=== PATIENT | female | born 1985 ===

== ENCOUNTER 2019-10-08 05:16 | Inpatient (IN) | payer BC ==
[2019-10-07 11:40] LABS: BLOOD UREA NITROGEN,BUN 6 mg/dL (7.0-18.0); CARBON DIOXIDE,CO2 23.1 mmol/L (21.0-32.0); CHLORIDE,CL 105 mmol/L (98-107); GLUCOSE RANDOM 117 mg/dL (74-106); POTASSIUM,K 4.1 mmol/L (3.5-5.1); SODIUM,NA 137 mmol/L (136-145)
[2019-10-08] MEDS ORDERED: Sodium Chloride 0.9% 10 ML Syringe FLUSH PRN (05:20)
[2019-10-08] MEDS ORDERED: Sodium Chloride 0.9% 2.5 ML Syringe FLUSH PRN (05:20)
[2019-10-08] MEDS ORDERED: Citric Acid/Sodium Citrate Solution 30 ML Cup PO ONE (05:20)
[2019-10-08] MEDS ORDERED: ceFAZolin 1 GM in Premix Bag 1 BAG IV ONE (05:20)
[2019-10-08] MEDS ORDERED: Sodium Chloride 0.9% 10 ML SDV IV PRN (05:20)
[2019-10-08] MEDS ORDERED: Oxytocin/0.9 % Sodium Chloride 30 UNIT/500 ML BAG IV SCH (05:30)
[2019-10-08] MEDS: Lactated Ringers 1,000 ML IV SCH ×3 (06:04→08:03)
--- NOTE | 2019-10-08 06:46 | PCM.PREANE ---
Preanesthetic Assessment - Anesthesia/Transfusion/Family Hx Anesthesia History: Prior Anesthesia Without Reaction Family History of Anesthesia Reaction: No Transfusion History: No Prior Transfusion(s) Intubation History: Unknown - Review of Systems General: No Symptoms Pulmonary: No Symptoms Cardiovascular: No Symptoms Gastrointestinal: No Symptoms Neurological: No Symptoms Other: Reports: None - Physical Assessment Height: 5 ft 2 in Weight: 68.946 kg ASA Class: 2 Mental Status: Alert & Oriented x3 Airway Class: Mallampati = 2 Dentition: Reports: Normal Dentition Thyro-Mental Finger Breadths: 3 Mouth Opening Finger Breadths: 2 ROM/Head Extension: Full Lungs: Clear to Auscultation, Normal Respiratory Effort Cardiovascular: Regular Rate, Regular Rhythm - Lab Values: Laboratory Last Values WBC 4.55 K/uL (4.0-11.0) 10/07/19 10:29 RBC 3.79 M/uL (4.30-5.90) L 10/07/19 10:29 Hgb 10.3 g/dL (12.0-16.0) L 10/07/19 10:29 Hct 31.9 % (36.0-46.0) L 10/07/19 10:29 MCV 84.2 fL (80.0-98.0) 10/07/19 10:29 MCH 27.2 pg (27.0-32.0) 10/07/19 10:29 MCHC 32.3 g/dL (31.0-37.0) 10/07/19 10:29 RDW Std Deviation 47.6 fl (28.0-62.0) 10/07/19 10:29 RDW Coeff of Karrie 16 % (11.0-15.0) H 10/07/19 10:29 Plt Count 201 K/uL (150-400) 10/07/19 10:29 MPV 9.80 fL (7.40-12.00) 10/07/19 10:29 Neut % (Auto) 56.4 % (48.0-80.0) 10/07/19 10:29 Lymph % (Auto) 33.8 % (16.0-40.0) 10/07/19 10:29 Luna % (Auto) 9.2 % (0.0-15.0) 10/07/19 10:29 Eos % (Auto) 0.4 % (0.0-7.0) 10/07/19 10:29 Baso % (Auto) 0.2 % (0.0-1.5) 10/07/19 10:29 Neut # (Auto) 2.6 K/uL (1.4-5.7) 10/07/19 10:29 Lymph # (Auto) 1.5 K/uL (0.6-2.4) 10/07/19 10:29 Luna # (Auto) 0.4 K/uL (0.0-0.8) 10/07/19 10:29 Eos # (Auto) 0.0 K/uL (0.0-0.7) 10/07/19 10:29 Baso # (Auto) 0.0 K/uL (0.0-0.1) 10/07/19 10:29 Nucleated RBC % 0.0 /100WBC 10/07/19 10:29 Nucleated RBCs # 0 K/uL 10/07/19 10:29 Sodium 137 mmol/L (136-145) 10/07/19 10:29 Potassium 4.1 mmol/L (3.5-5.1) 10/07/19 10:29 Chloride 105 mmol/L (98-107) 10/07/19 10:29 Carbon Dioxide 23.1 mmol/L (21.0-32.0) 10/07/19 10:29 BUN 6 mg/dL (7.0-18.0) L 10/07/19 10:29 Creatinine 0.6 mg/dL (0.6-1.0) 10/07/19 10:29 Est Cr Clr Drug Dosing 105.48 mL/min 10/07/19 10:29 Estimated GFR (MDRD) > 60.0 ml/min 10/07/19 10:29 Glucose 117 mg/dL (74-106) H 10/07/19 10:29 Calcium 8.5 mg/dL (8.5-10.1) 10/07/19 10:29 Total Bilirubin 0.2 mg/dL (0.2-1.0) 10/07/19 10:29 AST 22 IU/L (15-37) 10/07/19 10:29 ALT 15 IU/L (14-63) 10/07/19 10:29 Alkaline Phosphatase 193 U/L (46-116) H 10/07/19 10:29 Total Protein 6.6 g/dL (6.4-8.2) 10/07/19 10:29 Albumin 2.5 g/dL (3.4-5.0) L 10/07/19 10:29 Globulin 4.1 g/dL (2.6-4.0) H 10/07/19 10:29 Albumin/Globulin Ratio 0.6 (0.9-1.6) L 10/07/19 10:29 Blood Type O POSITIVE 10/07/19 10:29 Antibody Screen POSITIVE 10/07/19 10:29 Antibody Identification Anti-Morenita 10/07/19 10:29 Crossmatch See Detail 10/07/19 10:29 - Allergies Allergies/Adverse Reactions: Allergies Allergy/AdvReac Type Severity Reaction Status Date / Time No Known Allergies Allergy Verified 10/02/19 10:16 - Blood Blood Available: No - Anesthesia Plan Pre-Op Medication Ordered: None - Acknowledgements Anesthesia Type Planned: Spinal (general anesthesia back-up plan) Pt an Appropriate Candidate for the Planned Anesthesia: Yes Alternatives and Risks of Anesthesia Discussed w Pt/Guardian: Yes Pt/Guardian Understands and Agrees with Anesthesia Plan: Yes PreAnesthesia Questionnaire HEENT History: Reports: Impaired Vision Cardiovascular History: Reports: None Respiratory History: Reports: None Gastrointestinal History: Reports: Other (See Below) Other Gastrointestinal History: occasional heartburn Genitourinary History: Reports: None FREELANCE COURT REPORTER History: Reports: , Other (See Below) Other OB/BYN History: x2. Musculoskeletal History: Reports: None Neurological History: Reports: None Psychiatric History: Reports: None Endocrine/Metabolic History: Reports: IDDM (10 years, glucose 88 this morning) Hematologic History: Reports: None Immunologic History: Reports: None Oncologic (Cancer) History: Reports: None Dermatologic History: Reports: None - Past Surgical History Head Surgeries/Procedures: Reports: None HEENT Surgical History: Reports: None Cardiovascular Surgical History: Reports: None Respiratory Surgical History: Reports: None GI Surgical History: Reports: Cholecystectomy Female Surgical History: Reports: Section (x2) Endocrine Surgical History: Reports: None Neurological Surgical History: Reports: None Musculoskeletal Surgical History: Reports: None Oncologic Surgical History: Reports: None Dermatological Surgical History: Reports: None - SUBSTANCE USE Smoking Status *Q: Never Smoker Recreational Drug Use History: No - HOME MEDS Home Medications: Home Meds Acetaminophen [Tylenol Extra Strength] 1 tab PO ASDIRECTED PRN 09/20/19 [History ] Iron 1 tab PO DAILY 09/20/19 [History] Pnv #30/Iron Carb&Aspg/Fa/Om3 [OB Complete with DHA Softgel] 1 tab PO DAILY [History] Aspirin [Halfprin] 81 mg PO DAILY 10/02/19 [History] Insulin Aspart [NovoLOG] 1 injection SUBCUT ASDIRECTED 10/02/19 [History] Insulin Glargine,Hum.Rec.Anlog [Toujeo Solostar] 24 units SUBCUT ACBREAKFAST 08/11 [History] - CURRENT (IN HOUSE) MEDS Current Meds: Current Medications Lactated Ringer's (Ringers, Lactated) 1,000 mls @ 500 mls/hr IV BOLUS FAVIOLA Last Admin: 10/08/19 06:04 Dose: 500 mls/hr Oxytocin/Sodium Chloride (Oxytocin 30 Unit/500 Ml-Ns) 30 unit in 500 mls @ 250 mls/hr IV TITRATE FAVIOLA Sodium Chloride (Saline Flush) 10 ml FLUSH ASDIRECTED PRN PRN Reason: Keep Vein Open Sodium Chloride (Saline Flush) 2.5 ml FLUSH ASDIRECTED PRN PRN Reason: Keep Vein Open Sodium Chloride (Normal Saline) 10 ml IV ASDIRECTED PRN PRN Reason: IV Use Discontinued Medications Citric Acid/Sodium Citrate (Bicitra Solution) 30 ml PO ONETIME ONE Stop: 10/08/19 05:21 Cefazolin Sodium/Dextrose 1 gm (/ Premix) 50 mls @ 100 mls/hr IV ONETIME ONE Stop: 10/08/19 05:49
[2019-10-08] MEDS ORDERED: Morphine PF 10 MG/10 ML SDV ONE (07:18)
[2019-10-08] MEDS ORDERED: Propofol 200 MG/20 ML SDV ONE (07:19)
[2019-10-08] MEDS ORDERED: ePHEDrine 50 MG/ML SDV ONE (07:19)
[2019-10-08] MEDS ORDERED: Sodium Chloride 0.9% 40 ML ONE (07:29)
[2019-10-08] MEDS ORDERED: ceFAZolin 1 GM Vial ONE (07:35)
[2019-10-08] MEDS ORDERED: 50% Dextrose in Water 50 ML Syringe ONE (07:46)
[2019-10-08] MEDS ORDERED: 50% Dextrose in Water 50 ML Syringe IVPUSH PRN (07:53)
[2019-10-08] MEDS ORDERED: EPINEPHrine 1:10,000 1 MG/10 ML Syringe IVPUSH PRN (07:53)
[2019-10-08] MEDS ORDERED: Albuterol 0.083% 2.5 MG/3 ML Neb Soln NEB PRN (07:53)
[2019-10-08] MEDS ORDERED: Naloxone 0.4 MG/ML Syringe IVPUSH PRN ×4 (07:53→10:20)
[2019-10-08] MEDS ORDERED: Atropine 0.1 MG/ML 10 ML Syringe IVPUSH PRN ×2 (07:53)
[2019-10-08] MEDS ORDERED: fentaNYL 250 MCG/5 ML SDV ONE (08:31)
[2019-10-08] MEDS ORDERED: Octyl 2-Cyanoacrylate 1 Tube ONE (09:01)
[2019-10-08] MEDS ORDERED: Acetaminophen/oxyCODONE 325-5 MG Tab PO PRN ×2 (09:30→10:20)
[2019-10-08] MEDS ORDERED: Methylergonovine 0.2 MG/1 ML Amp IM PRN (09:30)
[2019-10-08] MEDS ORDERED: Lactated Ringers 1,000 ML IV SCH (09:30)
[2019-10-08] MEDS ORDERED: Ibuprofen 800 MG Tab PO PRN (09:30)
[2019-10-08] MEDS ORDERED: Tranexamic Acid 1,000 MG in Sodium Chloride 0.9% 100 ML IV PRN (09:30)
[2019-10-08] MEDS ORDERED: Ondansetron 4 MG/2 ML SDV IVPUSH PRN ×4 (09:30→10:20)
[2019-10-08] MEDS ORDERED: Bisacodyl 10 MG Supp RECTAL PRN (09:30)
[2019-10-08] MEDS ORDERED: diphenhydrAMINE 50 MG/ML SDV IVPUSH PRN ×4 (09:30→10:20)
[2019-10-08] MEDS ORDERED: Lanolin 100% Cream 7 GM Tube TOP PRN (09:30)
[2019-10-08] MEDS ORDERED: Oxytocin 10 Units/1 ML SDV IM PRN (09:30)
[2019-10-08] MEDS ORDERED: Misoprostol 200 MCG Tab RECTAL PRN (09:30)
[2019-10-08] MEDS: fentaNYL 100 MCG/2 ML SDV IVPUSH PRN ×2 (09:32→09:38)
[2019-10-08] MEDS ORDERED: diphenhydrAMINE 25 MG Cap PO PRN ×2 (09:43→10:00)
[2019-10-08] MEDS ORDERED: HYDROmorphone/Normal Saline 6 MG/30 ML PCA Vial IV PRN (09:43)
--- NOTE | 2019-10-08 09:43 | PCM.OPNOTE ---
- General Post-Op/Procedure Note Date of Surgery/Procedure: 10/08/19 Operative Procedure(s): Repeat c section Findings: Viable male APGARs 9, 9 weight 7 lb 11 oz. Intact placenta with 3V cord Pre Op Diagnosis: 38 week IUP. Previous c section x 2, desires repeat. Preexisting diabetes, on insulin Post-Op Diagnosis: Same Anesthesia Technique: General ET Tube, Spinal (converted to GETA) Primary Surgeon: Mavis Aguirre Networking Administrator: Prema Trinidad Fluid Replacement, Intraop: 3,300 EBL in mLs: 550 Complications: none known Condition: Stable Free Text/Narrative:: Dictation [id number]
[2019-10-08] MEDS ORDERED: Morphine PF 30 MG/30 ML PCA Vial IV SCH (10:00)
[2019-10-08] MEDS: Ketorolac 30 MG/ML SDV IVPUSH SCH ×3 (10:01→22:18)
[2019-10-08] MEDS ORDERED: fentaNYL 100 MCG/2 ML SDV IVPUSH PRN (10:20)
[2019-10-08] MEDS ORDERED: Nalbuphine 10 MG/1 ML Vial IVPUSH PRN (10:20)
--- NOTE | 2019-10-08 10:20 | PCM.POSTAN ---
POST ANESTHESIA ASSESSMENT - MENTAL STATUS Mental Status: Alert - VITAL SIGNS Vital Signs: Last Vital Signs Temp 36.1 C 10/08/19 09:25 Pulse 93 10/08/19 10:05 Resp 12 10/08/19 10:05 BP 108/71 10/08/19 10:05 Pulse Ox 100 10/08/19 10:05 - RESPIRATORY Respiratory Status: Respiratory Rate WNL, Airway Patent - CARDIOVASCULAR CV Status: Pulse Rate WNL, Blood Pressure Stable - GASTROINTESTINAL GI Status: No Symptoms - PAIN Pain Score: 4
[2019-10-08] MEDS: Simethicone 80 MG Tab.Chew PO SCH ×2 (13:34→22:59)
[2019-10-08] MEDS ORDERED: Sodium Chloride 0.9% 1,000 ML IV SCH (18:45)
[2019-10-08] MEDS: Docusate Sodium 100 MG Cap PO SCH (21:18)
[2019-10-08] MEDS: Insulin Glargine,Human Rec. Analog 100 Units/ML 3 ML Pen SUBCUT SCH (21:18)
[2019-10-09] MEDS: Simethicone 80 MG Tab.Chew PO SCH ×5 (01:48→23:12)
[2019-10-09] MEDS: Ketorolac 30 MG/ML SDV IVPUSH SCH ×2 (04:14→10:10)
[2019-10-09] MEDS: Insulin Aspart 100 Units/ML 3 ML Pen SUBCUT SCH ×3 (06:54→17:50)
--- NOTE | 2019-10-09 07:17 | PCM48HPAN ---
Post Anesthesia Note - EVALUATION WITHIN 48HRS OF ANESTHETIC Vital Signs in Normal Range: Yes Patient Participated in Evaluation: Yes Respiratory Function Stable: Yes Airway Patent: Yes Cardiovascular Function Stable: Yes Hydration Status Stable: Yes Pain Control Satisfactory: Yes Nausea and Vomiting Control Satisfactory: Yes Mental Status Recovered: Yes Vital Signs: Last Vital Signs Temp 36.1 C 10/09/19 04:00 Pulse 89 10/09/19 06:00 Resp 16 10/09/19 06:00 BP 94/63 10/09/19 04:00 Pulse Ox 95 10/09/19 06:00
--- NOTE | 2019-10-09 08:12 | OR ---
SURGEON: Mavis Aguirre M.D. DATE OF PROCEDURE: 10/08/2019 PREOPERATIVE DIAGNOSES: 1. A 38-week intrauterine . 2. Previous section x2, desires repeat. 3. Pre-existing diabetes. POSTOPERATIVE DIAGNOSES: 1. A 38-week intrauterine . 2. Previous section x2, desires repeat. 3. Pre-existing diabetes. PROCEDURE: Repeat low-transverse section. PRIMARY SURGEON: Mavis Aguirre MD. LIMEHOUSE WORKER: Zachary Trinidad. ANESTHESIA: Spinal converted to general endotracheal anesthesia. FLUIDS: 3300 mL of crystalloid. ESTIMATED BLOOD LOSS: 550 mL. COMPLICATIONS: None known. FINDINGS: Viable male. scores 9 at one minute and 9 at five minutes. Weight of 7 pounds 11 ounces. Intact placenta, 3-vessel cord. Normal appearing pelvis otherwise. DISPOSITION: Infant to nursery, mom in PACU. PROCEDURE DETAILS: Macrina is a 34-year-old, G3, P2 at 38 weeks' gestational age who presented this morning for a scheduled repeat delivery. has been complicated by insulin-dependent pre-existing diabetes. Glucose this morning is 69. She did receive some IV glucose. The patient has signed proper consents. Risks of procedure have been discussed with her. She was taken to the operating room where she underwent spinal anesthetic, was placed in dorsal supine position with leftward tilt. SCDs to lower extremities. Yanez to gravity. Was prepped and draped in the usual sterile fashion. Received Ancef prophylactically. Time-out was performed. Anesthesia was tested and found to be adequate. Previous Pfannenstiel scar was now excised. Subcutaneous tissue was incised down to the level of the fascia. The fascia was incised in the midline and laterally sharply and bluntly on either side. At this juncture, we began dissecting the overlying fascia away from underlying muscle in the midline. The patient responded very acutely with discomfort. Despite reposition, still had discomfort, though significant. Therefore, at this point, I opted to proceed with general anesthesia. She had a same, similar experience with her last . The patient underwent general anesthesia at this point. An endotracheal tube was able to be appropriately placed. The fascia was incised and then inferior aspect of fascia was dissected away from underlying muscle. The muscle was in midline. The peritoneum was entered. Rectus muscle and peritoneum were now lateralized bluntly. The uterine position and position were now gently palpated. Self-retaining retractor was gently placed. Uterovesical reflection was visualized. Bladder was mobilized away from the lower uterine segment by creating bladder flap sharply and bluntly. A low-transverse hysterotomy was now performed. Uterine cavity was entered with blunt-ended scalpel. Hysterotomy was lateralized bluntly. Amniotomy was performed, clear fluid returned. The 's head was flexed, delivered from the pelvis. Fundal pressure was applied. The head was delivered followed by anterior shoulder, posterior shoulder, and remainder of the body without difficulty. The 's oropharynx and nares were bulb suctioned. Cord was clamped x2 and cut. was crying vigorously. Infant was handed off to attending nursing staff. Cord arterial, cord venous, cord blood sampling obtained. The placenta was now delivered. Uterine cavity was cleared of all clot and debris. Hysterotomy was repaired using 0 Vicryl in continuous running locked fashion followed by re- imbricating layer. Any areas of oozing were cauterized. Posterior aspect of the uterus inspected, no defects or hematomas found to be forming. Region was well irrigated, suction dried. Ovaries appeared normal. Uterus returned to the abdominal cavity. Colonic gutters were cleared of all clot and debris, well irrigated, suction dried. Hysterotomy once again inspected, found to be hemostatic. Uterus initially boggy, but with fundal massage and Pitocin, was able to firm up nicely. The self-retaining retractor was now gently removed. A bladder blade was placed. Hysterotomy was once again inspected, found to be hemostatic. Rectus muscle and peritoneum were now reapproximated using 0 Vicryl with inverted mattress suture technique. Anterior aspect of the muscle and posterior aspect of the fascia were closely inspected, any areas of oozing were cauterized. The rectus fascia was reapproximated using 0 Vicryl in continuous running fashion, beginning laterally on either side and meeting in the midline. Subcutaneous areas of oozing were cauterized. Deep subcutaneous tissue was reapproximated using 3-0 plain. Skin was reapproximated using 3-0 Vicryl in subcuticular fashion on a Rudi needle followed by Dermabond. Uterus remained firm. Hemostasis evident. Sponge and needle count was correct x2. The patient tolerated the procedure well overall. She will go to the PACU in stable condition, infant to nursery. MAGDIEL / IMELDA /[id number]
--- NOTE | 2019-10-09 08:52 | PCM.PNPP ---
- General Info Date of Service: 10/09/19 Functional Status: Reports: Pain Controlled, Tolerating Diet - Review of Systems General: Reports: Fatigue. Denies: Fever, Weakness Pulmonary: Denies: Shortness of Breath Cardiovascular: Denies: Chest Pain, Palpitations, Lightheadedness Gastrointestinal: Reports: Abdominal Pain (incisional, controlled overall with pain meds). Denies: Nausea, Vomiting Genitourinary: Denies: Flank Pain Musculoskeletal: Reports: No Symptoms Skin: Reports: No Symptoms Neurological: Reports: No Symptoms Psychiatric: Reports: No Symptoms - General Info Date of Service: 10/09/19 - Patient Data Vital Signs - Most Recent: Last Vital Signs Temp 36.4 C 10/09/19 08:00 Pulse 99 10/09/19 08:00 Resp 22 H 10/09/19 08:00 BP 106/59 L 10/09/19 08:00 Pulse Ox 97 10/09/19 08:00 Weight - Most Recent: 68.946 kg I&O - Last 24 Hours: Intake & Output 10/08/19 10/09/19 10/09/19 22:59 06:59 14:59 Output Total 1300 2775 Balance -1300 -2775 Lab Results - Last 24 Hours: Laboratory Results - last 24 hr 10/08/19 10/08/19 10/08/19 Range/Units 08:38 09:53 13:29 Hgb (12.0-16.0) g/dL Hct (36.0-46.0) % Cord ABG pH 7.292 (7.18-7.38) Cord ABG Base Excess -3 (-10--2) Cord VBG pH 7.308 (7.25-7.45) Cord VBG Base Excess -5 (-10--2) POC Glucose 81 63 (60-110) mg/dL 10/08/19 10/08/19 10/09/19 Range/Units 17:27 21:14 05:46 Hgb 9.3 L (12.0-16.0) g/dL Hct 28.1 L (36.0-46.0) % Cord ABG pH (7.18-7.38) Cord ABG Base Excess (-10--2) Cord VBG pH (7.25-7.45) Cord VBG Base Excess (-10--2) POC Glucose 95 156 H (60-110) mg/dL 10/09/19 Range/Units 06:49 Hgb (12.0-16.0) g/dL Hct (36.0-46.0) % Cord ABG pH (7.18-7.38) Cord ABG Base Excess (-10--2) Cord VBG pH (7.25-7.45) Cord VBG Base Excess (-10--2) POC Glucose 101 (60-110) mg/dL Med Orders - Current: Current Medications Albuterol (Proventil Neb Soln) 2.5 mg NEB ONETIME PRN PRN Reason: Wheezing Atropine Sulfate (Atropine 0.1 Mg/Ml) 0.5 mg IVPUSH ASDIRECTED PRN PRN Reason: Hypo-perfusion Atropine Sulfate (Atropine 0.1 Mg/Ml) 1 mg IVPUSH ASDIRECTED PRN PRN Reason: Hypo-Perfusion Bisacodyl (Dulcolax) 10 mg RECTAL ONETIME PRN PRN Reason: Constipation Dextrose/Water (Dextrose 50% In Water) 50 ml IVPUSH ASDIRECTED PRN PRN Reason: Hypoglycemia Last Admin: 10/08/19 07:48 Dose: 25 ml Diphenhydramine HCl (Benadryl) 25 mg IVPUSH Q6H PRN PRN Reason: Itching or Nausea Last Admin: 10/08/19 10:07 Dose: 25 mg Diphenhydramine HCl (Benadryl) 25 mg IVPUSH Q6H PRN PRN Reason: Itching Diphenhydramine HCl (Benadryl) 25 mg PO Q6H PRN PRN Reason: Itching Diphenhydramine HCl (Benadryl) 25 mg IVPUSH Q6H PRN PRN Reason: Itching Diphenhydramine HCl (Benadryl) 25 mg PO Q6H PRN PRN Reason: Itching Diphenhydramine HCl (Benadryl) 25 mg IVPUSH Q4H PRN PRN Reason: Itching Stop: 10/09/19 10:20 Docusate Sodium (Colace) 100 mg PO BID FAVIOLA Last Admin: 10/08/19 21:18 Dose: 100 mg Emollient Ointment (Lansinoh Hpa) 0 gm TOP ASDIRECTED PRN PRN Reason: Sore Nipples Epinephrine HCl (Epinephrine 1:10,000) 1 mg IVPUSH ASDIRECTED PRN PRN Reason: ACLS Guidelines Fentanyl (Sublimaze) 50 - 100 mcg IVPUSH Q5M PRN PRN Reason: Pain Last Admin: 10/08/19 09:38 Dose: 50 mcg Fentanyl (Sublimaze) 50 mcg IVPUSH Q1H PRN PRN Reason: Pain (severe 7-10) Last Admin: 10/08/19 11:23 Dose: 50 mcg Lactated Ringer's (Ringers, Lactated) 1,000 mls @ 500 mls/hr IV BOLUS [facility] Last Admin: 10/08/19 08:03 Dose: 999 mls/hr Oxytocin/Sodium Chloride (Oxytocin 30 Unit/500 Ml-Ns) 30 unit in 500 mls @ 250 mls/hr IV TITRATE [facility] Lactated Ringer's (Ringers, Lactated) 1,000 mls @ 125 mls/hr IV ASDIRECTED [facility] Last Admin: 10/08/19 10:39 Dose: 125 mls/hr Tranexamic Acid 1,000 mg/ (Sodium Chloride) 110 mls @ 660 mls/hr IV ONETIME PRN PRN Reason: Bleeding Sodium Chloride (Normal Saline) 1,000 mls @ 50 mls/hr IV ASDIRECTED [facility] Last Admin: 10/08/19 18:58 Dose: 50 mls/hr Ibuprofen (Motrin) 800 mg PO Q8H PRN PRN Reason: mild pain or fever Insulin Aspart (Novolog) 0 unit SUBCUT TIDAC [facility]; Protocol Last Admin: 10/09/19 06:54 Dose: Not Given Insulin Glargine (Lantus Solostar) 20 units SUBCUT BEDTIME [facility] Last Admin: 10/08/19 21:18 Dose: 20 units Ketorolac Tromethamine (Toradol) 30 mg IVPUSH Q6H [facility] Stop: 10/09/19 09:31 Last Admin: 10/09/19 04:14 Dose: 30 mg Methylergonovine Maleate (Methergine) 0.2 mg IM ONETIME PRN PRN Reason: Excessive Vaginal Bleeding Misoprostol (Cytotec) 1,000 mcg RECTAL ONETIME PRN PRN Reason: excessive bleeding Morphine Sulfate (Morphine Churn Tender 30 Mg In 30 Ml) 0 mg IV ASDIRECTED [facility]; Protocol Last Admin: 10/08/19 13:07 Dose: 30 mg Nalbuphine HCl (Nubain) 5 mg IVPUSH ASDIRECTED PRN PRN Reason: Itching Naloxone HCl (Narcan) 0.1 mg IVPUSH ASDIRECTED PRN PRN Reason: Respiratory Depression Naloxone HCl (Narcan) 0.04 mg IVPUSH Q3M PRN PRN Reason: Respiratory Depression Naloxone HCl (Narcan) 0.04 mg IVPUSH Q3M PRN PRN Reason: Respiratory Depression Naloxone HCl (Narcan) 0.1 mg IVPUSH ONETIME PRN PRN Reason: Respiratory Depression Stop: 10/09/19 10:20 Ondansetron HCl (Zofran) 4 mg IVPUSH Q4H PRN PRN Reason: Nausea/Vomiting Ondansetron HCl (Zofran) 4 mg IVPUSH Q6H PRN PRN Reason: Nausea/Vomiting Ondansetron HCl (Zofran) 4 mg IVPUSH Q6H PRN PRN Reason: Nausea/Vomiting Ondansetron HCl (Zofran) 4 mg IVPUSH Q6H PRN PRN Reason: Nausea Oxycodone/Acetaminophen (Percocet 325-5 Mg) 1 tab PO Q4H PRN PRN Reason: Pain (moderate 4-6) Oxycodone/Acetaminophen (Percocet 325-5 Mg) 2 tab PO Q4H PRN PRN Reason: Pain (moderate 4-6) Oxycodone/Acetaminophen (Percocet 325-5 Mg) 2 tab PO Q6H PRN PRN Reason: Pain (moderate 4-6) Oxytocin (Pitocin) 10 unit IM ASDIRECTED PRN PRN Reason: Excessive Vaginal Bleeding Simethicone (Simethicone) 160 mg PO QID [facility] Last Admin: 10/09/19 06:25 Dose: 160 mg Sodium Chloride (Saline Flush) 10 ml FLUSH ASDIRECTED PRN PRN Reason: Keep Vein Open Sodium Chloride (Saline Flush) 2.5 ml FLUSH ASDIRECTED PRN PRN Reason: Keep Vein Open Sodium Chloride (Normal Saline) 10 ml IV ASDIRECTED PRN PRN Reason: IV Use Discontinued Medications Cefazolin Sodium (Ancef) Confirm Administered Dose 1 gm .ROUTE .STK-MED ONE Stop: 10/08/19 07:36 Citric Acid/Sodium Citrate (Bicitra Solution) 30 ml PO ONETIME ONE Stop: 10/08/19 05:21 Last Admin: 10/08/19 13:32 Dose: Not Given Dextrose/Water (Dextrose 50% In Water) Confirm Administered Dose 50 ml .ROUTE .STK-MED ONE Stop: 10/08/19 07:47 Last Admin: 10/08/19 13:32 Dose: Not Given Ephedrine Sulfate (Ephedrine Sulfate) Confirm Administered Dose 50 mg .ROUTE .STK-MED ONE Stop: 10/08/19 07:20 Fentanyl (Sublimaze) Confirm Administered Dose 250 mcg .ROUTE .STK-MED ONE Stop: 10/08/19 08:32 Cefazolin Sodium/Dextrose 1 gm (/ Premix) 50 mls @ 100 mls/hr IV ONETIME ONE Stop: 10/08/19 05:49 Last Admin: 10/08/19 13:31 Dose: Not Given Sodium Chloride (Normal Saline) Confirm Administered Dose 40 mls @ as directed .ROUTE .STK-MED ONE Stop: 10/08/19 07:30 Ibuprofen (Motrin) 800 mg PO Q8H PRN PRN Reason: mild pain or fever Morphine Sulfate (Duramorph Pf) Confirm Administered Dose 10 mg .ROUTE .STK-MED ONE Stop: 10/08/19 07:19 Octyl Cyanoacrylate (Dermabond Advance) Confirm Administered Dose 1 applic .ROUTE .STK-MED ONE Stop: 10/08/19 09:02 Last Admin: 10/08/19 13:32 Dose: Not Given Propofol (Diprivan 20 Ml) Confirm Administered Dose 200 mg .ROUTE .STK-MED ONE Stop: 10/08/19 07:20 - Infant Interaction Support Person: - Recovery Exam Fundal Tone: Firm Fundal Level: At Umbilicus Fundal Placement: Midline Lochia Amount: Scant Lochia Color: Rubra/Red Perineum Description: Intact, Minimal Bruising/Swelling Episiotomy/Laceration: None Bladder Status: Indwelling Catheter in Place Urinary Elimination: Indwelling Catheter - Exam General: Alert, Oriented Lungs: Normal Respiratory Effort Cardiovascular: Regular Rate, Regular Rhythm GI/Abdominal Exam: Normal Bowel Sounds, Soft Extremities: Pedal Edema (trace). No: Kimberly's Sign Skin: Warm, Dry, Intact Wound/Incisions: Dressing Dry and Intact Neurological: No New Focal Deficit Psy/Mental Status: Alert, Normal Affect, Normal Mood - Problem List & Annotations (1) Status post repeat low transverse section SNOMED Code(s): 922790984, 17210800, 145911901, 615804173, 334185754 Code(s): Z98.891 - HISTORY OF UTERINE SCAR FROM PREVIOUS SURGERY Status: Acute Current Visit: Yes (2) Diabetes SNOMED Code(s): 83011031 Code(s): E11.9 - TYPE 2 DIABETES MELLITUS WITHOUT COMPLICATIONS Status: Acute Current Visit: Yes - Problem List Review Problem List Initiated/Reviewed/Updated: Yes - My Orders Last 24 Hours: My Active Orders 10/08/19 09:30 Notify Provider Intake and Out [RC] ASDIRECTED Notify Provider Vital Signs [RC] ASDIRECTED Acetaminophen/oxyCODONE [Percocet 325-5 MG] 1 tab PO Q4H PRN Acetaminophen/oxyCODONE [Percocet 325-5 MG] 2 tab PO Q4H PRN Ketorolac [Toradol] 30 mg IVPUSH Q6H Lactated Ringers [Ringers, Lactated] 1,000 ml IV ASDIRECTED Lanolin [Lansinoh HPA] See Dose Instructions TOP ASDIRECTED PRN Methylergonovine [Methergine] 0.2 mg IM ONETIME PRN Ondansetron [Zofran] 4 mg IVPUSH Q4H PRN Oxytocin [Pitocin] 10 unit IM ASDIRECTED PRN Tranexamic Acid [Cyklokapron] 1,000 mg Sodium Chloride 0.9% [Normal Saline] 100 ml IV ONETIME bisacodyL [Dulcolax] 10 mg RECTAL ONETIME PRN diphenhydrAMINE [Benadryl] 25 mg IVPUSH Q6H PRN miSOPROStoL [Cytotec] 1,000 mcg RECTAL ONETIME PRN Abdominal Binder [OM.PC] Routine Heat Therapy [OM.PC] Routine Ice Therapy [OM.PC] Routine 10/08/19 09:31 Patient Status [ADT] Routine Ambulate [RC] PER UNIT ROUTINE Antiembolic Devices [RC] PER UNIT ROUTINE Communication Order [RC] PER UNIT ROUTINE Communication Order [RC] PER UNIT ROUTINE Communication Order [RC] Per Unit Routine May Shower [RC] ASDIRECTED RT Incentive Spirometry [RC] Q2HWA Assess Lochia [WOMSER] Per Unit Routine Assess Uterine Involution [WOMSER] Per Unit Routine Breast Pump [WOMSER] Per Unit Routine Peripheral IV Discontinue [OM.PC] Routine Sequential Compression Device [OM.PC] Per Unit Routine 10/08/19 09:43 Naloxone [Narcan] 0.04 mg IVPUSH Q3M PRN Ondansetron [Zofran] 4 mg IVPUSH Q6H PRN diphenhydrAMINE [Benadryl] 25 mg IVPUSH Q6H PRN diphenhydrAMINE [Benadryl] 25 mg PO Q6H PRN 10/08/19 09:44 Communication Order [RC] PER UNIT ROUTINE APPLICATIONS PROJECT MANAGER Record [RC] Q4H 10/08/19 12:00 Simethicone 160 mg PO QID 10/08/19 21:00 Docusate Sodium [Colace] 100 mg PO BID 10/08/19 Lunch Consistent Carbohydrate Diet [DIET] 10/09/19 07:30 Insulin Aspart [NovoLOG] See Protocol SUBCUT TIDAC 10/09/19 16:00 Ibuprofen [Motrin] 800 mg PO Q8H PRN - Assessment Assessment:: POD 1 status post repeat c section Diabetes--pre existing on insulin - Plan Plan:: Labs and VS are reassuring. Resumed lantus 20 U last night and using insulin sliding scale today to see where her novolog should run now that delivered. Continue postoperative cares. May shower and encourage ambulation of halls.
[2019-10-09] MEDS: Acetaminophen/oxyCODONE 325-5 MG Tab PO PRN ×2 (09:29→23:12)
[2019-10-09] MEDS: Docusate Sodium 100 MG Cap PO SCH ×2 (09:29→21:01)
[2019-10-09] MEDS: Ibuprofen 800 MG Tab PO PRN (18:58)
[2019-10-09] MEDS: Insulin Glargine,Human Rec. Analog 100 Units/ML 3 ML Pen SUBCUT SCH (21:01)
[2019-10-10] MEDS: Insulin Aspart 100 Units/ML 3 ML Pen SUBCUT SCH (07:25)
[2019-10-10] MEDS: Ibuprofen 800 MG Tab PO PRN (07:28)
[2019-10-10] MEDS: Simethicone 80 MG Tab.Chew PO SCH (08:00)
[2019-10-10] MEDS: Docusate Sodium 100 MG Cap PO SCH (09:06)
--- NOTE | 2019-10-10 09:48 | PCM.PNPP ---
- General Info Date of Service: 10/10/19 Functional Status: Reports: Pain Controlled, Tolerating Diet, Ambulating, Urinating - Review of Systems General: Denies: Fever, Weakness, Fatigue Pulmonary: Denies: Shortness of Breath Cardiovascular: Denies: Chest Pain, Palpitations, Lightheadedness Gastrointestinal: Reports: Flatus. Denies: Abdominal Pain, Nausea, Vomiting Genitourinary: Denies: Flank Pain Musculoskeletal: Reports: No Symptoms Skin: Reports: No Symptoms Neurological: Reports: No Symptoms Psychiatric: Reports: No Symptoms - General Info Date of Service: 10/10/19 - Patient Data Vital Signs - Most Recent: Last Vital Signs Temp 36.3 C 10/10/19 08:00 Pulse 78 10/10/19 08:00 Resp 19 10/10/19 08:00 BP 121/75 10/10/19 08:00 Pulse Ox 97 10/10/19 08:00 Weight - Most Recent: 68.946 kg Lab Results - Last 24 Hours: Laboratory Results - last 24 hr 10/07/19 10/09/19 10/09/19 Range/Units 10:29 10:03 11:05 POC Glucose 45 L 136 H (60-110) mg/dL RPR Non Reactive (NonRea<1:1) 10/09/19 10/09/19 10/09/19 Range/Units 12:13 13:25 17:36 POC Glucose 189 H 153 H 85 (60-110) mg/dL RPR (NonRea<1:1) 10/09/19 10/10/19 10/10/19 Range/Units 20:28 04:31 05:36 POC Glucose 213 H 45 L 90 (60-110) mg/dL RPR (NonRea<1:1) 10/10/19 Range/Units 07:06 POC Glucose 166 H (60-110) mg/dL RPR (NonRea<1:1) Med Orders - Current: Current Medications Albuterol (Proventil Neb Soln) 2.5 mg NEB ONETIME PRN PRN Reason: Wheezing Atropine Sulfate (Atropine 0.1 Mg/Ml) 0.5 mg IVPUSH ASDIRECTED PRN PRN Reason: Hypo-perfusion Atropine Sulfate (Atropine 0.1 Mg/Ml) 1 mg IVPUSH ASDIRECTED PRN PRN Reason: Hypo-Perfusion Bisacodyl (Dulcolax) 10 mg RECTAL ONETIME PRN PRN Reason: Constipation Dextrose/Water (Dextrose 50% In Water) 50 ml IVPUSH ASDIRECTED PRN PRN Reason: Hypoglycemia Last Admin: 10/08/19 07:48 Dose: 25 ml Diphenhydramine HCl (Benadryl) 25 mg IVPUSH Q6H PRN PRN Reason: Itching or Nausea Last Admin: 10/08/19 10:07 Dose: 25 mg Diphenhydramine HCl (Benadryl) 25 mg IVPUSH Q6H PRN PRN Reason: Itching Diphenhydramine HCl (Benadryl) 25 mg PO Q6H PRN PRN Reason: Itching Diphenhydramine HCl (Benadryl) 25 mg IVPUSH Q6H PRN PRN Reason: Itching Diphenhydramine HCl (Benadryl) 25 mg PO Q6H PRN PRN Reason: Itching Docusate Sodium (Colace) 100 mg PO BID [facility] Last Admin: 10/10/19 09:06 Dose: 100 mg Emollient Ointment (Lansinoh Hpa) 0 gm TOP ASDIRECTED PRN PRN Reason: Sore Nipples Epinephrine HCl (Epinephrine 1:10,000) 1 mg IVPUSH ASDIRECTED PRN PRN Reason: ACLS Guidelines Fentanyl (Sublimaze) 50 - 100 mcg IVPUSH Q5M PRN PRN Reason: Pain Last Admin: 10/08/19 09:38 Dose: 50 mcg Fentanyl (Sublimaze) 50 mcg IVPUSH Q1H PRN PRN Reason: Pain (severe 7-10) Last Admin: 10/08/19 11:23 Dose: 50 mcg Lactated Ringer's (Ringers, Lactated) 1,000 mls @ 500 mls/hr IV BOLUS FAVIOLA Last Admin: 10/08/19 08:03 Dose: 999 mls/hr Oxytocin/Sodium Chloride (Oxytocin 30 Unit/500 Ml-Ns) 30 unit in 500 mls @ 250 mls/hr IV TITRATE FAVIOLA Lactated Ringer's (Ringers, Lactated) 1,000 mls @ 125 mls/hr IV ASDIRECTED FAVIOLA Last Admin: 10/08/19 10:39 Dose: 125 mls/hr Tranexamic Acid 1,000 mg/ (Sodium Chloride) 110 mls @ 660 mls/hr IV ONETIME PRN PRN Reason: Bleeding Sodium Chloride (Normal Saline) 1,000 mls @ 50 mls/hr IV ASDIRECTED [facility] Last Admin: 10/08/19 18:58 Dose: 50 mls/hr Ibuprofen (Motrin) 800 mg PO Q8H PRN PRN Reason: mild pain or fever Last Admin: 10/10/19 07:28 Dose: 800 mg Insulin Aspart (Novolog) 0 unit SUBCUT TIDAC [facility]; Protocol Last Admin: 10/10/19 07:25 Dose: 1 unit Insulin Glargine (Lantus Solostar) 20 units SUBCUT BEDTIME [facility] Last Admin: 10/09/19 21:01 Dose: 20 units Methylergonovine Maleate (Methergine) 0.2 mg IM ONETIME PRN PRN Reason: Excessive Vaginal Bleeding Misoprostol (Cytotec) 1,000 mcg RECTAL ONETIME PRN PRN Reason: excessive bleeding Morphine Sulfate (Morphine [employer] 30 Mg In 30 Ml) 0 mg IV ASDIRECTED [facility]; Protocol Last Admin: 10/08/19 13:07 Dose: 30 mg Nalbuphine HCl (Nubain) 5 mg IVPUSH ASDIRECTED PRN PRN Reason: Itching Naloxone HCl (Narcan) 0.1 mg IVPUSH ASDIRECTED PRN PRN Reason: Respiratory Depression Naloxone HCl (Narcan) 0.04 mg IVPUSH Q3M PRN PRN Reason: Respiratory Depression Naloxone HCl (Narcan) 0.04 mg IVPUSH Q3M PRN PRN Reason: Respiratory Depression Ondansetron HCl (Zofran) 4 mg IVPUSH Q4H PRN PRN Reason: Nausea/Vomiting Ondansetron HCl (Zofran) 4 mg IVPUSH Q6H PRN PRN Reason: Nausea/Vomiting Ondansetron HCl (Zofran) 4 mg IVPUSH Q6H PRN PRN Reason: Nausea/Vomiting Ondansetron HCl (Zofran) 4 mg IVPUSH Q6H PRN PRN Reason: Nausea Oxycodone/Acetaminophen (Percocet 325-5 Mg) 1 tab PO Q4H PRN PRN Reason: Pain (moderate 4-6) Oxycodone/Acetaminophen (Percocet 325-5 Mg) 2 tab PO Q4H PRN PRN Reason: Pain (moderate 4-6) Last Admin: 10/09/19 23:12 Dose: 2 tab Oxycodone/Acetaminophen (Percocet 325-5 Mg) 2 tab PO Q6H PRN PRN Reason: Pain (moderate 4-6) Oxytocin (Pitocin) 10 unit IM ASDIRECTED PRN PRN Reason: Excessive Vaginal Bleeding Simethicone (Simethicone) 160 mg PO QID F[facility]A Last Admin: 10/10/19 08:00 Dose: 160 mg Sodium Chloride (Saline Flush) 10 ml FLUSH ASDIRECTED PRN PRN Reason: Keep Vein Open Last Admin: 10/09/19 10:11 Dose: 10 ml Sodium Chloride (Saline Flush) 2.5 ml FLUSH ASDIRECTED PRN PRN Reason: Keep Vein Open Sodium Chloride (Normal Saline) 10 ml IV ASDIRECTED PRN PRN Reason: IV Use Discontinued Medications Cefazolin Sodium (Ancef) Confirm Administered Dose 1 gm .ROUTE .STK-MED ONE Stop: 10/08/19 07:36 Citric Acid/Sodium Citrate (Bicitra Solution) 30 ml PO ONETIME ONE Stop: 10/08/19 05:21 Last Admin: 10/08/19 13:32 Dose: Not Given Dextrose/Water (Dextrose 50% In Water) Confirm Administered Dose 50 ml .ROUTE .STK-MED ONE Stop: 10/08/19 07:47 Last Admin: 10/08/19 13:32 Dose: Not Given Diphenhydramine HCl (Benadryl) 25 mg IVPUSH Q4H PRN PRN Reason: Itching Stop: 10/09/19 10:20 Ephedrine Sulfate (Ephedrine Sulfate) Confirm Administered Dose 50 mg .ROUTE .STK-MED ONE Stop: 10/08/19 07:20 Fentanyl (Sublimaze) Confirm Administered Dose 250 mcg .ROUTE .STK-MED ONE Stop: 10/08/19 08:32 Cefazolin Sodium/Dextrose 1 gm (/ Premix) 50 mls @ 100 mls/hr IV ONETIME ONE Stop: 10/08/19 05:49 Last Admin: 10/08/19 13:31 Dose: Not Given Sodium Chloride (Normal Saline) Confirm Administered Dose 40 mls @ as directed .ROUTE .STK-MED ONE Stop: 10/08/19 07:30 Ibuprofen (Motrin) 800 mg PO Q8H PRN PRN Reason: mild pain or fever Ketorolac Tromethamine (Toradol) 30 mg IVPUSH Q6H [facility] Stop: 10/09/19 09:31 Last Admin: 10/09/19 10:10 Dose: 30 mg Morphine Sulfate (Duramorph Pf) Confirm Administered Dose 10 mg .ROUTE .STK-MED ONE Stop: 10/08/19 07:19 Naloxone HCl (Narcan) 0.1 mg IVPUSH ONETIME PRN PRN Reason: Respiratory Depression Stop: 10/09/19 10:20 Octyl Cyanoacrylate (Dermabond Advance) Confirm Administered Dose 1 applic .ROUTE .STK-MED ONE Stop: 10/08/19 09:02 Last Admin: 10/08/19 13:32 Dose: Not Given Propofol (Diprivan 20 Ml) Confirm Administered Dose 200 mg .ROUTE .STK-MED ONE Stop: 10/08/19 07:20 - Interaction Disposition, : [facility] in Room with Family Support Person: - Recovery Exam Fundal Tone: Firm Fundal Level: Unable to Assess Fundal Placement: Midline Lochia Amount: Scant Lochia Color: Rubra/Red Perineum Description: Intact, Minimal Bruising/Swelling Episiotomy/Laceration: None Bladder Status: Voiding Urinary Elimination: Voided - Exam General: Alert, Oriented Lungs: Normal Respiratory Effort Cardiovascular: Regular Rate, Regular Rhythm GI/Abdominal Exam: Normal Bowel Sounds, Soft, Tender (appropriately near incision). No: Guarding, Rigid, Rebound Extremities: Pedal Edema (trace). No: Kimberly's Sign Skin: Warm, Dry, Intact Wound/Incisions: Healing Well, No Drainage. No: Erythema Neurological: No New Focal Deficit Psy/Mental Status: Alert, Normal Affect, Normal Mood - Problem List & Annotations (1) Status post repeat low transverse section SNOMED Code(s): 908376612, 84533128, [id number], [id number], 868173130 Code(s): Z98.891 - HISTORY OF UTERINE SCAR FROM PREVIOUS SURGERY Status: Acute Current Visit: Yes (2) Diabetes SNOMED Code(s): 52069921 Code(s): E11.9 - TYPE 2 DIABETES MELLITUS WITHOUT COMPLICATIONS Status: Acute Current Visit: Yes - Problem List Review Problem List Initiated/Reviewed/Updated: Yes - My Orders Last 24 Hours: My Active Orders 10/09/19 16:00 Ibuprofen [Motrin] 800 mg PO Q8H PRN 10/10/19 09:45 Ready for Discharge [RC] PER UNIT ROUTINE - Assessment Assessment:: POD 2 status post repeat c section Diabetes--pre existing on insulin - Plan Plan:: Patient is doing well overall--ready to go home today. Discharge instructions reviewed. Infection and bleeding warnings reviewed. Will do long acting insulin at 20 U daily and then novolog at 6 U prior to meals to start, may titrate slowly up as needed for elevate glucoses over 130. Discharge to home today. Follow up at [facility] 2 and 6 weeks
== END 2019-10-10 11:25 | disposition home or self-care (01) | DRG 540 ==
LOC: MW.OB 05:16
PROVIDERS: ADMIT Obstetrics & Gynecology; ATTEND Obstetrics & Gynecology
PROC: 10D00Z1 Extraction of Products of Conception, Low, Open Approach (ICD-10-PCS; principal; 2019-10-08)
DX: O34.211 Maternal care for low transverse scar from previous cesarean delivery (principal); O24.12 Pre-existing type 2 diabetes mellitus, in childbirth; E11.9 Type 2 diabetes mellitus without complications; Z37.0 Single live birth; Z79.4 Long term (current) use of insulin; Z79.82 Long term (current) use of aspirin; Z3A.38 38 weeks gestation of pregnancy
CPT/HCPCS: 01961; 36415; 59025; 80053; 82803; 82962; 85014; 85018; 85025; 86593; 86850; 86870; 86900; 86901; A9270-GY; J0690; J1200; J1815-GY; J1885; J2270; J2274; J2704; J3010; J7030; J7120